=== PATIENT | female | born 1940 | race Caucasian/White ===

== ENCOUNTER 2016-11-22 15:21 | Inpatient (IN) | payer MEDICARE, OTHER ==
--- NOTE | ~2016-11-22 | DS ---
Discharge Summary [place] [id number] [facility] [place]. [address] NAME: WIL DENNIS : 42 STATUS : DIS IN PAT#: [id number] AGE: 76 ADM/REG DATE : 11/22/16 MR#: [id number] REPORT SERV DATE: 12/13/16 DICTATED BY: Jocelynn GARNICA DATE: 12/12/16 REPORT STATUS : Draft TRANSCRIBED BY: MODL DATE: 12/12/16 ADMISSION DATE: 11/22/2016 DISCHARGE DATE: 11/25/2016 ADMISSION DIAGNOSIS: Intractable pain due to proximal ureteral obstruction by an extrinsic mass. DISCHARGE DIAGNOSIS: Intractable pain due to proximal ureteral obstruction by an extrinsic mass. PROCEDURES DURING ADMISSION: 11/24/2016, cysto, right retrograde pyelography, left retrograde pyelography, right double-J stent placement, examination under anesthesia. BRIEF HISTORY: Ms. 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 There was recurrence and she is being resected several times. She was then felt to have unresectable disease on the left and has been treated with radiation therapy by Dr. De Leon. She presented to the emergency room with severe right flank pain and was admitted. She has a new mass in the right retroperitoneum near the right ureter that is now encasing the ureter. She was admitted for pain control. HOSPITAL COURSE AND TREATMENT: The patient was admitted on 11/22/2016, seen by Dr. Harris on 11/23/2016. I returned on 11/24/2016, she was miserable and we planned for stent placement. This was done uneventfully and a CT with contrast was obtained. On 11/25/2016, she was tolerating her stent without complaints and was discharged with the following instructions. DISCHARGE INSTRUCTIONS: 1. Home today. 2. Percocet 5/325 one to two p.o. q.4 hours p.r.n. pain, #20. 3. Pyridium 200 mg one p.o. t.i.d. p.r.n. bladder pain, #15 with three refills. 4. I offered general surgery consult during this admission. She wants to check CT first and follow up with Dr. De Leon as she is resistant to any thought of recurrent operative intervention. She will follow up with me in the next several weeks. SHERRELL/ROBERT Jocelynn Garnica M.D. / [id number] CC: Jocelynn Garnica M.D. Discharge Summary [address] [address] NAME: WIL DENNIS : 42 STATUS : DIS IN PAT#: [id number] AGE: 76 ADM/REG DATE : 11/22/16 MR#: [id number] REPORT SERV DATE: 12/13/16 DICTATED BY: Jocelynn GARNICA DATE: 12/12/16 REPORT STATUS : Draft TRANSCRIBED BY: ROBERT DATE: 12/12/16 FLORIDALMA TINSLEY
--- NOTE | ~2016-11-22 | OP ---
Record Of Operation [facility] [address] [place]. 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 PROCEDURE: Cystoscopy, right retrograde pyelography, left retrograde pyelography, placement of right double-J stent, examination under anesthesia. SURGEON: Jocelynn Garnica M.D. ANESTHESIA: General. COMPLICATIONS: None. DRAINS: 7-Prydeinig x 26 cm right Percuflex Plus double-J stent. BRIEF HISTORY: Ms. Dennis is a 76-year-old white female, well known to me, who has a remote history of retroperitoneal liposarcoma that underwent resection. There was recurrence and she was resected again. Last year, she was found to have recurrent disease on the left and it was felt to be unresectable. She underwent radiation therapy by Dr. De Leon and has been followed by him in the interim. She presented to the emergency room two days ago with severe right flank pain that was new in onset, and apparently, there is a mass now on the right side that was obstructing her proximal ureter. She was apparently pain-free yesterday, but when I saw her this morning, she was miserable with nausea and vomiting, and we decided to proceed with stent placement. Her creatinine has been normal. She appears uninfected. We discussed the risks of bleeding, infection, anesthesia, need for stent exchange, and further evaluation as indicated. There are no unanswered questions. DESCRIPTION OF PROCEDURE: Under excellent general anesthesia, the patient was prepped and draped in the standard lithotomy position. Bimanual exam revealed no evidence of pelvic masses or other abnormalities. There was no evidence of vaginal mass. Cystoscopy was performed with 30- and 70-degree lenses, revealed a normal urethra. The bladder was normal without tumors, stones, or foreign bodies. An 8-Prydeinig cone-tipped catheter was used to perform a right retrograde pyelogram. It showed a normal caliber ureter up into the proximal aspect where there appeared to be extrinsic compression and pyelocaliectasis. A left retrograde pyelogram was performed as well which seemed to show normal caliber with good drainage. I inserted an angled glidewire through a 5-Prydeinig open-ended catheter into the right collecting system. I initially placed a 7-Prydeinig x 24 cm Percuflex Plus double-J stent, but it appeared too short and I thought that since this will be needed for some time, we should get a better, more appropriately sized stent, so I replaced it with a 7-Prydeinig x 26 cm Percuflex Plus double-J stent. It coiled nicely in the renal pelvis and bladder. The case was terminated. I plan to send the patient to the floor and obtain a CT scan with Record Of Operation [address] [address] NAME: WIL DENNIS : 42 STATUS : ADM IN PAT#: [id number] AGE: 76 ADM/REG DATE : 11/22/16 MR#: [id number] REPORT SERV DATE: 11/24/16 DICTATED BY: Jocelynn GARNICA DATE: 11/24/16 REPORT STATUS : Draft TRANSCRIBED BY: ROBERT DATE: 11/24/16 contrast either today or tomorrow and proceed as indicated. We may need further consultation with Radiation Oncology or General Surgery. SHERRELL/ROBERT Jocelynn Garnica M.D. / [id number] CC: Francois Pritchett MADELINE T. Frank Kimsey, M.D.
--- NOTE | ~2016-11-22 | HP ---
History And Physical [place] [id number] [facility] [place]. [address] NAME: WIL PAEZ : 42 STATUS : ADM IN [facility]#: [id number] AGE: 76 ADM/REG DATE : 11/22/16 MR#: [id number] REPORT SERV DATE: 11/23/16 DICTATED BY: NIMA HARRIS DATE: 11/23/16 REPORT STATUS : Draft TRANSCRIBED BY: MODL DATE: 11/23/16 DATE OF ADMISSION: 11/22/2016 HISTORY: This is a 76-year-old female with a known right retroperitoneal liposarcoma who presented to the [facility] Emergency Room with intractable right flank pain. She was transferred here for further evaluation and care. She is status post an open resection of a left retroperitoneal liposarcoma approximately ten years ago. She was known to have a right retroperitoneal liposarcoma discovered about three years ago, which has been on radiographic surveillance and has been relatively stable. She was due for surveillance cystoscopy on 11/23/2016. Her left retroperitoneal resection was also treated successfully with adjuvant radiation therapy. She is anticipating at some point, treatment of this right mass. On 11/22/2016, she had sudden onset of right flank pain. This was associated with nausea and vomiting. The pain did not radiate. She has had a history of urolithiasis and this pain was distinctly different from renal colic secondary to ureteral calculus. She presented to the emergency room, where a CT scan was done, which identified again this right renal mass and right hydronephrosis. Her creatinine was 0.68. She is currently pain-free. The nausea and vomiting have resolved. Her review of systems is remarkable for hypertension and chronic atrial fibrillation. She is on digoxin and is anticoagulated with Pradaxa. She has not had any complications from these. She is otherwise in good health. PHYSICAL EXAMINATION: GENERAL: At exam, she is currently in no apparent distress. HEAD AND NECK: Grossly normal. LUNGS: Clear to auscultation bilaterally. CARDIAC: Demonstrates normal first and second heart sounds with an arrhythmia. ABDOMEN: Soft and nontender. EXTREMITIES: Without edema. NEURO: Intact to confrontation. LABORATORY DATA: Her hemoglobin is currently 10.4 and her white count is 3.6. Her creatinine is 0.69 and electrolytes are normal. IMPRESSION: Right flank pain secondary to right hydronephrosis secondary to extrinsic obstruction from a retroperitoneal liposarcoma. RECOMMENDATIONS: Supportive care with parenteral analgesia and antiemetics. Further evaluation with review of the CT scan in comparison to the previous CT scans. Possible interventions include renal decompression with stent. Further recommendations will be dependent upon discussion with Dr. Colin. History And Physical [address] [place]. [address] NAME: WIL PAEZ : 42 STATUS : ADM IN PAT#: [id number] AGE: 76 ADM/REG DATE : 11/22/16 MR#: [id number] REPORT SERV DATE: 11/23/16 DICTATED BY: NIMA HARRIS DATE: 11/23/16 REPORT STATUS : Draft TRANSCRIBED BY: ROBERT DATE: 11/23/16 DALIA/ROBERT Nima Harris M.D. / [id number] CC: Francois Pritchett M.D.
[~2016-11-22 15:21] MED LIST: ASAB PO; BACDS PO; BENICAR HCT1 TA2 PO; BENTYL10 PO; C5 PO; CARD30 PO; DIGITEK0.125 MG PO; DSS PO; FE C PO; GAVISCON6 PO; HALF81 PO; HORMONE PELLET SC; HYZAAR 100/25 T1 TAB PO; IVVIBRA PO; KLOR-CON 1010 MEQ PO; KLOR-CON M1010 MEQ PO; L40 PO; LAN125 PO; LEVOTHYROXIN150 MCG PO; LIPITOR10 PO; LOP100 PO; LOP50 PO; LOPRESS HCT1 TAB PO; NEXIUM40 PO; NORCO1 TA1 PO; OTC IRON PO; P10 PO; PHENERGAN 2525 MG/ML IM; PLAVIX PO; PR25 PO; PRADAXA150 MG PO; PROTONIX PO; PROVHFA INH; PULMICORT; PULMICORT180 MCG INH; RYTHMOL225 MG PO; SYN.15 PO; SYN075 PO; SYN1 PO; T PO; TAMBOCOR150 MG PO; TOPXL100 PO; TOPXL50 PO; TRANSSCOP TOP; TYLENOL ARTH650 MG PO; ZOFRAN4 PO; ZYRTEC
[2016-11-23 06:40] LABS: BASOPHILS 0.3 %; BASOPHILS ABSOLUTE 0.01 10/3/uL (0.0-0.16); EOSINOPHILS 0.6 %; EOSINOPHILS ABSOLUTE 0.02 10/3/uL (0.0-0.53); HEMOGLOBIN 10.4 g/dL (12.0-16.0); IMMATURE GRANULOCYTES 0.3 %; IMMATURE GRANULOCYTES ABSOLUTE 0.01 10/3/uL (0.0-0.11); LYMPHOCYTES ABSOLUTE 1.07 10/3/uL (0.67-4.30); MEAN CORPUS HGB CONC 32.5 g/dL (32.0-36.0); MEAN PLATELET VOLUME 10.3 fL (9.2-13.0); MONOCYTES 5.6 %; NEUTROPHILS 63.2 %; NEUTROPHILS ABSOLUTE 2.26 10/3/uL (2.02-8.40); PLATELET COUNT 194 10/3/uL (150-400); RBC DISTRIBUTION WIDTH 17.3 % (12.0-16.0); RED CELL COUNT 3.72 10/6/uL (4.0-5.6); WHITE BLOOD CELLS 3.6 10/3/uL (4.5-10.5)
[2016-11-23 06:43] LABS: MANUAL DIFF NO %
[2016-11-23 06:54] LABS: BUN (BLOOD UREA NITROGEN) 12 MG/DL (6-23); CALCIUM, SERUM 7.9 MG/DL (8.5-10.4); CHLORIDE, SERUM 107 MMOL/L (96-112); CO2 (CARBON DIOXIDE) 26 MMOL/L (24-34); CREATININE 0.69 MG/DL (0.55-1.02); GFR AFRICAN AMERICAN 99 ML/MIN (>=60); GFR NON AFRICAN AMERICAN 86 ML/MIN (>=60); GLUCOSE, SERUM 108 MG/DL (60-99); POTASSIUM, SERUM 4.5 MMOL/L (3.5-5.3); SODIUM, SERUM 141 MMOL/L (135-148)
[2016-11-25 06:30] LABS: BASOPHILS 0 %; EOSINOPHILS 0.2 %; EOSINOPHILS ABSOLUTE 0.01 10/3/uL (0.0-0.53); IMMATURE GRANULOCYTES 0.4 %; IMMATURE GRANULOCYTES ABSOLUTE 0.02 10/3/uL (0.0-0.11); LYMPHOCYTES 21.9 %; LYMPHOCYTES ABSOLUTE 0.99 10/3/uL (0.67-4.30); MANUAL DIFF NO %; MEAN CORPUS HGB CONC 33.3 g/dL (32.0-36.0); MEAN CORPUSCULAR HEMOGLOB 28.5 pg (26.0-34.0); MEAN CORPUSCULAR VOLUME 85.5 fL (80-100); MEAN PLATELET VOLUME 10.3 fL (9.2-13.0); MONOCYTES 5.3 %; MONOCYTES ABSOLUTE 0.24 10/3/uL (0.21-1.20); NEUTROPHILS 72.2 %; NEUTROPHILS ABSOLUTE 3.26 10/3/uL (2.02-8.40); PLATELET COUNT 250 10/3/uL (150-400); RBC DISTRIBUTION WIDTH 17.1 % (12.0-16.0); RED CELL COUNT 3.86 10/6/uL (4.0-5.6); WHITE BLOOD CELLS 4.5 10/3/uL (4.5-10.5)
[2016-11-25 06:53] LABS: BUN (BLOOD UREA NITROGEN) 10 MG/DL (6-23); CALCIUM, SERUM 8.3 MG/DL (8.5-10.4); CHLORIDE, SERUM 106 MMOL/L (96-112); CO2 (CARBON DIOXIDE) 24 MMOL/L (24-34); CREATININE 0.59 MG/DL (0.55-1.02); GFR AFRICAN AMERICAN 105 ML/MIN (>=60); GFR NON AFRICAN AMERICAN 90 ML/MIN (>=60); GLUCOSE, SERUM 113 MG/DL (60-99); SODIUM, SERUM 142 MMOL/L (135-148)
[2016-11-25] MEDS ORDERED: ROXICODONE15 MG PO (10:44)
[2016-11-25] MEDS ORDERED: PYR200 PO (10:44)
[2017-05-12] MEDS ORDERED: [UNRECOGNIZED DRUG - OTHER] PO (11:41)
[2017-05-12] MEDS ORDERED: VENTOLIN HFA INH (11:42)
== END 2016-11-25 11:47 | disposition home or self-care (01) | DRG 844 ==
LOC: 4SO 15:21
PROVIDERS: Urology
PROC: BT141ZZ Fluoroscopy of Kidneys, Ureters and Bladder using Low Osmolar Contrast (ICD-10-PCS; principal; 2016-11-24 11:00)
PROC: 0T768DZ Dilation of Right Ureter with Intraluminal Device, Via Natural or Artificial Opening Endoscopic (ICD-10-PCS; 2016-11-24 11:00)
DX: C48.0 Malignant neoplasm of retroperitoneum (principal); N13.39 Other hydronephrosis; I48.2 Chronic atrial fibrillation; I10 Essential (primary) hypertension; I25.10 Atherosclerotic heart disease of native coronary artery without angina pectoris; J45.909 Unspecified asthma, uncomplicated; Z95.5 Presence of coronary angioplasty implant and graft; Z91.040 Latex allergy status; Z88.8 Allergy status to other drugs, medicaments and biological substances; Z79.82 Long term (current) use of aspirin; Z79.899 Other long term (current) drug therapy
CPT/HCPCS: 74176; 74177; 80048; 80053; 81001; 83690; 85025; 93005; 96374; 96375; 99285; A9270-GY; C1758; C1769; C2617; J0330; J1170; J1885; J2250; J2405; J2550; J3010; Q9967

== ENCOUNTER 2017-02-17 11:08 | Day surgery (SDC) | payer MEDICARE, OTHER ==
--- NOTE | ~2017-02-17 | OP ---
Record Of Operation [facility] [address] [place]. [address] NAME: WIL DENNIS : 42 STATUS : REG [facility] PAT#: [id number] AGE: 76 ADM/REG DATE : 02/17/17 MR#: [id number] REPORT SERV DATE: 02/17/17 DICTATED BY: Jocelynn GARNICA DATE: 02/17/17 REPORT STATUS : Draft TRANSCRIBED BY: MODL DATE: 02/17/17 DATE OF PROCEDURE: 02/17/2017 PREOPERATIVE DIAGNOSIS: Right ureteral obstruction with indwelling right double-J stent. POSTOPERATIVE DIAGNOSIS: Right ureteral obstruction with indwelling right double-J stent. PROCEDURE: Cystoscopy, removal of right double-J stent, right retrograde pyelogram, placement of right double-J stent. SURGEON: Jocelynn Garnica M.D. ANESTHESIA: General. COMPLICATIONS: None. DRAINS: 7-Guinean x 26 cm Percuflex Plus double-J stent. BRIEF HISTORY: Ms. Dennis is a 76-year-old white female, known to me with a retroperitoneal sarcoma. She had ureteral obstruction and a stent was placed on 11/24/2016. She is here for stent exchange. She has had some symptoms including gross hematuria, but a culture was negative last week although she was given a short course of antibiotics. A scan on 02/16/2017, apparently showed that this mass had enlarged somewhat in size. We discussed the risks of bleeding, infection, anesthesia, need for continued stent, inability to access ureter, etc. there were no unanswered questions. DESCRIPTION OF PROCEDURE: Under excellent general anesthesia, the patient was prepped and draped in a standard lithotomy position. Cystoscopy was performed with a 30-degree lens, revealed a stent emanating from the right orifice with mild encrustation. The orifice appeared mildly obscured by papillary irritation, so I grasped the stent, brought it to the orifice and then placed an angled glidewire through it up to the level of the renal pelvis. I then retrofitted the wire into the cystoscope through a 5-Guinean open-ended catheter and advanced the catheter to the level of the renal pelvis. The well decompressed renal pelvis was then dilutely opacified with contrast and the wire was replaced. I advanced a 7-Guinean x 26 cm Percuflex Plus double-J stent which coiled nicely in the renal pelvis and bladder and terminated the procedure. I plan to discharge Ms. Dennis as an outpatient with the following instructions. DISCHARGE INSTRUCTIONS: 1. Home today. 2. Pyridium 200 mg one p.o. t.i.d. p.r.n. bladder pain, #15 with three refills. 3. I would like to see her back in the office short of three months. I do not think I would like to leave this stent in any longer than 3 months. She is to follow up regarding further therapy as indicated for her retroperitoneal mass. Record Of Operation [facility] [address] [facility] [place]. [address] NAME: WIL DENNIS : 44 STATUS : REG [facility]#: [id number] AGE: 76 ADM/REG DATE : 02/17/17 MR#: [id number] REPORT SERV DATE: 02/17/17 DICTATED BY: Jocelynn GARNICA DATE: 02/17/17 REPORT STATUS : Draft TRANSCRIBED BY: ROBERT DATE: 02/17/17 SHERRELL/ROBERT Jocelynn Garnica M.D. / [id number] CC: Francois Pritchett M.D. Larry Schlabach, M.D. Frank Kimsey, M.D.
[~2017-02-17 11:08] MED LIST changes: +PYR200 PO; +ROXICODONE15 MG PO
[2017-02-17 12:04] LABS: HEMATOCRIT 33.2 % (36.0-48.0); HEMOGLOBIN 10.9 g/dL (12.0-16.0)
[2017-02-17 12:16] LABS: BUN (BLOOD UREA NITROGEN) 8 MG/DL (6-23); CALCIUM, SERUM 8.8 MG/DL (8.5-10.4); CHLORIDE, SERUM 105 MMOL/L (96-112); CREATININE 0.59 MG/DL (0.55-1.02); GFR AFRICAN AMERICAN 105 ML/MIN (>=60); GFR NON AFRICAN AMERICAN 90 ML/MIN (>=60); GLUCOSE, SERUM 131 MG/DL (60-99); POTASSIUM, SERUM 4.3 MMOL/L (3.5-5.3); SODIUM, SERUM 140 MMOL/L (135-148)
[2017-02-17 12:17] LABS: CO2 (CARBON DIOXIDE) 29 MMOL/L (24-34)
[2017-05-12] MEDS ORDERED: [UNRECOGNIZED DRUG - OTHER] PO (11:41)
[2017-05-12] MEDS ORDERED: VENTOLIN HFA INH (11:42)
== END 2017-02-17 23:59 | disposition home or self-care (01) ==
LOC: SDC 11:08
PROC: BT1DYZZ Fluoroscopy of Right Kidney, Ureter and Bladder using Other Contrast (ICD-10-PCS; 2017-02-17)
PROC: 0T768DZ Dilation of Right Ureter with Intraluminal Device, Via Natural or Artificial Opening Endoscopic (ICD-10-PCS; principal; 2017-02-17 12:45)
DX: Z46.6 Encounter for fitting and adjustment of urinary device (principal); N13.5 Crossing vessel and stricture of ureter without hydronephrosis; I10 Essential (primary) hypertension; G43.909 Migraine, unspecified, not intractable, without status migrainosus; E78.00 Pure hypercholesterolemia, unspecified; I48.91 Unspecified atrial fibrillation; I25.10 Atherosclerotic heart disease of native coronary artery without angina pectoris; E03.9 Hypothyroidism, unspecified; E78.5 Hyperlipidemia, unspecified; J45.909 Unspecified asthma, uncomplicated; G89.29 Other chronic pain; M54.9 Dorsalgia, unspecified; D64.9 Anemia, unspecified; E11.9 Type 2 diabetes mellitus without complications; Z95.5 Presence of coronary angioplasty implant and graft; K21.9 Gastro-esophageal reflux disease without esophagitis; Z90.5 Acquired absence of kidney; Z90.710 Acquired absence of both cervix and uterus; Z90.89 Acquired absence of other organs; Z98.41 Cataract extraction status, right eye; Z98.42 Cataract extraction status, left eye; Z98.890 Other specified postprocedural states; Z91.02 Food additives allergy status; Z91.040 Latex allergy status; Z96.1 Presence of intraocular lens
CPT/HCPCS: 74420; 80048; 82962; 85014; 85018; 93005; C1758; C1769; C2617; J0690; J2250; J2405; J3010; Q9967